=== PATIENT | female | born 1960 ===

== ENCOUNTER 2019-04-09 18:44 | Emergency (ER) | payer OTHER ==
[~2019-04-09] VITALS: Ht 149.9 cm; Wt 38.6 kg
[2019-04-09 18:55] VITALS: Ht 149.9 cm; Wt 38.6 kg
[2019-04-09 21:14] LABS: microscopic required? NO
[2019-04-09 21:26] LABS: PLATELET COUNT 205 x10^3mcL (130-400)
[2019-04-09 21:27] LABS: UA SPECIFIC GRAVITY <=1.005 (1.005-1.035); urine erythrocyte NEGATIVE (NEGATIVE)
[2019-04-09 21:33] LABS: CALCIUM 7.7 mg/dL (8.5-10.1); CARBON DIOXIDE 29.1 mmol/L (21-32); CHLORIDE SERUM 109 mmol/L (98-107); CREATININE SERUM 0.6 mg/dL (0.6-1.0); GFR1 > 60 mL/min; GLUCOSE SERUM 104 mg/dL (74-106); SODIUM SERUM 143 mmol/L (136-145)
[2019-04-09 21:36] LABS: AMPHETAMINE QUAL UR NONE DETECTED (See below)
[2019-04-09 21:48] LABS: FREE T4 1.01 ng/dL (0.76-1.46)
[2019-04-10 00:45] VITALS: BP 121/58
== END 2019-04-10 00:45 | disposition home or self-care (01) ==
LOC: ED 18:44
PROVIDERS: Emergency Medicine
DX: R42 Dizziness and giddiness (principal); R53.1 Weakness; R33.9 Retention of urine, unspecified; K59.00 Constipation, unspecified
CPT/HCPCS: 84439; G0480